=== PATIENT | female | born 1985 | race Caucasian/White ===

== ENCOUNTER 2017-06-09 22:35 | Emergency (ER) | payer BC, MEDICAID ==
[~2017-06-09] VITALS: Ht 162.6 cm; Wt 111.6 kg
[2017-06-09 22:35] VITALS: BP_SYST 162
[~2017-06-09 22:35] MED LIST: LEVO75TA7 PO; ZYZAL PO
[2017-06-09] MEDS ORDERED: methylPREDNISolone SOD SUCC/PF 62.5 MG/ML VIAL IVP ONE (23:00)
[2017-06-09] MEDS ORDERED: EPINEPHrine 1 MG/ML AMP SUBCUT ONE (23:00)
[2017-06-09] MEDS ORDERED: DIPHENHYDRAMINE INJ 50 MG/ML VIAL IVP ONE (23:00)
[2017-06-09] MEDS ORDERED: FAMOTIDINE PF 20 MG/2 ML VIAL IVP ONE (23:00)
[2017-06-10 00:32] VITALS: BP_SYST 161
== END 2017-06-10 00:32 | disposition home or self-care (01) ==
LOC: SED 22:35
DX: T78.1XXA Other adverse food reactions, not elsewhere classified, initial encounter (principal); R07.0 Pain in throat; R06.02 Shortness of breath; R03.0 Elevated blood-pressure reading, without diagnosis of hypertension; J45.909 Unspecified asthma, uncomplicated; Z88.2 Allergy status to sulfonamides; Z91.010 Allergy to peanuts; X58.XXXA Exposure to other specified factors, initial encounter
CPT/HCPCS: 70360; 81025; 96372; 96374; 96375; 99284; J0171; J1200; J2930; J3490

== ENCOUNTER 2017-06-16 23:10 | Emergency (ER) | payer MEDICAID ==
[~2017-06-16] VITALS: Ht 162.6 cm; Wt 109.8 kg
[2017-06-16 23:15] VITALS: BP_SYST 154
--- NOTE | 2017-06-16 23:15 | NUR ---
Patient to ER bed 7 to gown for evaluation. Side rails up. Report given to Marina RODRIGUEZ.
--- NOTE | 2017-06-16 23:18 | NUR ---
Patient AAO x4, sitting in bed, c/o weakness, "sweatiness", shaking, nausea, vomiting, dizziness, shortness of breath, and body aches 5/10 x "a few days",patient not actively vomiting, denies nausea at this time, lung sounds clear, patient afebrile. at bedside. Patient laughing at talking to and playing on her cell phone. No acute distress noted. Will continue to monitor.
--- NOTE | 2017-06-17 01:32 | NUR ---
ER Dr. Guillermo at bedside examining patient.
[2017-06-17 01:49] LABS: BILIRUBIN,URINE NEGATIVE (NEGATIVE); BLOOD, URINE NEGATIVE (NEGATIVE); CLARITY/URINE CLEAR (CLEAR); COLOR,URINE YELLOW (YELLOW); GLUCOSE,URINE NEGATIVE (NEGATIVE); KETONES,URINE NEGATIVE (NEGATIVE); LEUKOCYTE ESTERASE ,URINE NEGATIVE (NEGATIVE); NITRITE, URINE NEGATIVE (NEGATIVE); PROTEIN URINE 2+ (NEGATIVE); UROBILINOGEN,URINE 0.2 (0.2-1.0)
[2017-06-17 01:58] LABS: BASOPHILS # (AUTO) 0.1 K/uL (0.0-0.2); BASOPHILS % (AUTO) 0.5 % (0.0-2.0); EOSINOPHILS # (AUTO) 0.4 K/uL (0.0-0.4); EOSINOPHILS % (AUTO) 3.5 % (0.0-4.0); HEMATOCRIT 37.6 % (36-48); HEMOGLOBIN 12.5 g/dL (12.0-16.0); LYMPHOCYTES # (AUTO) 3.2 K/uL (1.0-5.5); LYMPHOCYTES % (AUTO) 27.7 % (20.5-51.5); MEAN CORPUSCULAR HEMOGLOBIN 25 pg (27-31); MEAN CORPUSCULAR HGB CONC 33 % (32-36); MEAN CORPUSCULAR VOLUME 76 fL (79.0-98.0); MONOCYTES # (AUTO) 0.7 K/uL (0.0-1.0); MONOCYTES % (AUTO) 6.2 % (1.7-9.3); NEUTROPHILS # (AUTO) 7.1 K/uL (1.8-7.7); NEUTROPHILS % (AUTO) 62.1 % (40.0-70.0); PLATELET COUNT (AUTO) 271 K/uL (130-430); RED BLOOD CELL COUNT(AUTO) 4.93 MIL/uL (4.2-6.2); RED CELL DISTRIBUTION WIDTH 14.6 % (9.0-15.0); WHITE BLOOD COUNT (AUTO) 11.5 K/uL (4.8-10.8)
[2017-06-17 02:03] LABS: CALCIUM 8.7 mg/dL (8.4-11.0); CREATININE 0.73 mg/dL (0.55-1.30); POTASSIUM 3.8 mmol/L (3.5-5.1)
[2017-06-17 02:05] LABS: RBC,URINE NONE SEEN /HPF (0-3); WBC,URINE NONE SEEN /HPF (0-3)
[2017-06-17 02:06] LABS: BACTERIA,URINE RARE /HPF (None Seen); MUCUS,URINE 1+ /LPF (None Seen)
[2017-06-17 02:18] LABS: BARBITURATE, URINE NEGATIVE (NEG <=200); BENZODIAZEPINE, URINE NEGATIVE (NEG <=150); CANNABINOID, URINE NEGATIVE (NEG <=50); COCAINE, URINE NEGATIVE (NEG <=150); METHAMPHETAMINES SCREEN,URINE NEGATIVE (NEG <=500); OPIATE, URINE NEGATIVE (NEG <=100); PHENCYCLIDINE SCREEN,URINE NEGATIVE (NEG <=25); UR TRICYCLIC ANTIDEPRESSANTS NEGATIVE (NEG <=300); URINE AMPHETAMINE NEGATIVE (NEG <=500); URINE METHADONE NEGATIVE (NEG <=200); URINE OXYCODONE SCREEN NEGATIVE (NEG <=100); URINE PROPOXYPHENE SCREEN NEGATIVE (NEG <=300)
[2017-06-17 02:19] LABS: ALBUMIN 3.5 g/dL (3.4-4.8); THYROID STIMULATING HORMONE 18.92 uIu/mL (0.34-4.82); TOTAL BILIRUBIN 0.3 mg/dL (0.0-1.0); TOTAL PROTEIN, SERUM 7.3 g/dL (6.4-8.3)
--- NOTE | 2017-06-17 02:30 | NUR ---
Patient resting quietly. No acute distress noted. Vital signs within normal range.
[2017-06-17 03:02] VITALS: BP_SYST 130
--- NOTE | 2017-06-17 03:02 | NUR ---
Patient given written and verbal discharge instructions and verbalizes understanding. ER MD discussed with patient the results and treatment provided. Patient in stable condition. ID arm band removed. No Rx given. Patient educated on pain management and to follow up with PMD. Pain Scale 0/10. Opportunity for questions provided and answered.
== END 2017-06-17 03:02 | disposition home or self-care (01) ==
LOC: SED 23:10
DX: R94.6 Abnormal results of thyroid function studies (principal); J45.909 Unspecified asthma, uncomplicated; Z88.2 Allergy status to sulfonamides; Z91.010 Allergy to peanuts; Z88.5 Allergy status to narcotic agent
CPT/HCPCS: 36415; 80053; 80307; 81000-TC; 81025; 84443-TC; 85025; 99284

== ENCOUNTER 2017-07-09 14:53 | Emergency (ER) | payer MEDICAID ==
[~2017-07-09] VITALS: Ht 162.6 cm; Wt 109.8 kg
[2017-07-09 15:04] VITALS: BP_SYST 159
[2017-07-09] MEDS ORDERED: ONDANSETRON HCL 4 MG/2 ML VIAL IVP ONE (15:45)
[2017-07-09] MEDS ORDERED: NACL 0.9% 1,000 ML IV ONE (15:45)
[2017-07-09] MEDS ORDERED: LABETALOL 100 MG/ 20ML VIAL IVP ONE (15:45)
[2017-07-09 15:54] LABS: BILIRUBIN,URINE 1+ (NEGATIVE); BLOOD, URINE NEGATIVE (NEGATIVE); CLARITY/URINE SL HAZY (CLEAR); COLOR,URINE YELLOW (YELLOW); GLUCOSE,URINE NEGATIVE (NEGATIVE); KETONES,URINE TRACE (NEGATIVE); LEUKOCYTE ESTERASE ,URINE TRACE (NEGATIVE); NITRITE, URINE NEGATIVE (NEGATIVE); PROTEIN URINE 3+ (NEGATIVE)
[2017-07-09 16:01] LABS: BASOPHILS # (AUTO) 0.1 K/uL (0.0-0.2); BASOPHILS % (AUTO) 0.5 % (0.0-2.0); EOSINOPHILS # (AUTO) 0.6 K/uL (0.0-0.4); HEMOGLOBIN 12.5 g/dL (12.0-16.0); LYMPHOCYTES % (AUTO) 16.8 % (20.5-51.5); NEUTROPHILS % (AUTO) 71.1 % (40.0-70.0)
[2017-07-09 16:03] LABS: EOSINOPHILS % (AUTO) 5.1 % (0.0-4.0); HEMATOCRIT 37.9 % (36-48); MEAN CORPUSCULAR HEMOGLOBIN 26 pg (27-31); MEAN CORPUSCULAR HGB CONC 33 % (32-36); MEAN CORPUSCULAR VOLUME 78 fL (79.0-98.0); MONOCYTES # (AUTO) 0.8 K/uL (0.0-1.0); MONOCYTES % (AUTO) 6.5 % (1.7-9.3); NEUTROPHILS # (AUTO) 8.5 K/uL (1.8-7.7); PLATELET COUNT (AUTO) 258 K/uL (130-430); RED BLOOD CELL COUNT(AUTO) 4.86 MIL/uL (4.2-6.2); RED CELL DISTRIBUTION WIDTH 15.2 % (9.0-15.0)
[2017-07-09 16:16] LABS: BACTERIA,URINE MODERATE /HPF (None Seen); RBC,URINE 0-3 /HPF (0-3)
[2017-07-09 16:17] LABS: MUCUS,URINE 2+ /LPF (None Seen)
[2017-07-09] MEDS ORDERED: hydrALAZINE HCL 20 MG/ML VIAL IVP ONE (16:45)
[2017-07-09] MEDS ORDERED: NITROFURANTOIN MONOHYD/M-CRYST 100 MG CAPSULE PO ONE (17:00)
[2017-07-09 17:39] LABS: CALCIUM 8.6 mg/dL (8.4-11.0); CREATININE 0.57 mg/dL (0.55-1.30); POTASSIUM 3.6 mmol/L (3.5-5.1)
[2017-07-09 18:02] LABS: ALBUMIN 3.3 g/dL (3.4-4.8); TOTAL BILIRUBIN 0.4 mg/dL (0.0-1.0); TOTAL PROTEIN, SERUM 6.9 g/dL (6.4-8.3)
[2017-07-09 19:10] VITALS: BP_SYST 145
== END 2017-07-09 19:05 | disposition home or self-care (01) ==
LOC: SED 14:53
DX: O16.1 Unspecified maternal hypertension, first trimester (principal); O23.41 Unspecified infection of urinary tract in pregnancy, first trimester; O99.281 Endocrine, nutritional and metabolic diseases complicating pregnancy, first trimester; E03.9 Hypothyroidism, unspecified; O21.9 Vomiting of pregnancy, unspecified; J45.909 Unspecified asthma, uncomplicated; Z3A.01 Less than 8 weeks gestation of pregnancy; Z88.2 Allergy status to sulfonamides; Z88.5 Allergy status to narcotic agent; Z91.010 Allergy to peanuts
CPT/HCPCS: 36415; 76801; 76817; 80053; 81000; 81025; 84439; 84443; 84702; 85025; 86886; 86900; 86901; 87086; 87210; 87491; 87591; 93005; 96361; 96374; 96375; 99285; J0360; J2405; J3490; J7030

== ENCOUNTER 2017-07-16 11:02 | Emergency (ER) | payer MEDICAID ==
[~2017-07-16] VITALS: Ht 162.6 cm; Wt 108.9 kg
[2017-07-16 11:02] VITALS: BP_SYST 144
--- NOTE | 2017-07-16 11:04 | NUR ---
BROUGHT BACK TO BED #7 AND TRIAGED. REPORT GIVEN TO [place]
--- NOTE | 2017-07-16 11:25 | NUR ---
Pt complains of cramping with spotting and hypertension for the past couple of days, pt was here 7 days ago with the same problem, HTN medication was given last time with [facility]. No other injuries/complaints per pt or noted.
[2017-07-16] MEDS ORDERED: METO-290 PO (11:29)
[2017-07-16] MEDS ORDERED: PRO20 PO (11:29)
[2017-07-16] MEDS ORDERED: LABE300T PO (11:29)
[2017-07-16] MEDS ORDERED: CEPH-568 PO (11:29)
[2017-07-16] MEDS ORDERED: NITR-85 PO (11:29)
[2017-07-16] MEDS ORDERED: LEVO125T8 PO (11:29)
[2017-07-16] MEDS ORDERED: HYDR-4037 PO (11:29)
--- NOTE | 2017-07-16 11:32 | NUR ---
ER at bedside examining patient.
[2017-07-16] MEDS ORDERED: NACL 0.9% 1,000 ML IV ONE (11:45)
[2017-07-16 11:57] LABS: BILIRUBIN,URINE NEGATIVE (NEGATIVE); BLOOD, URINE NEGATIVE (NEGATIVE); CLARITY/URINE CLEAR (CLEAR); COLOR,URINE YELLOW (YELLOW); GLUCOSE,URINE NEGATIVE (NEGATIVE); KETONES,URINE NEGATIVE (NEGATIVE); LEUKOCYTE ESTERASE ,URINE 1+ (NEGATIVE); NITRITE, URINE NEGATIVE (NEGATIVE); PROTEIN URINE 2+ (NEGATIVE)
[2017-07-16 12:05] LABS: RBC,URINE 0-3 /HPF (0-3)
[2017-07-16 12:06] LABS: BACTERIA,URINE FEW /HPF (None Seen); WBC,URINE 0-3 /HPF (0-3)
[2017-07-16 12:07] LABS: MUCUS,URINE None Seen /LPF (None Seen)
[2017-07-16 12:20] LABS: BASOPHILS # (AUTO) 0.1 K/uL (0.0-0.2); BASOPHILS % (AUTO) 0.5 % (0.0-2.0); EOSINOPHILS # (AUTO) 0.3 K/uL (0.0-0.4); EOSINOPHILS % (AUTO) 2.7 % (0.0-4.0); HEMATOCRIT 37.4 % (36-48); HEMOGLOBIN 12.3 g/dL (12.0-16.0); LYMPHOCYTES # (AUTO) 2.1 K/uL (1.0-5.5); LYMPHOCYTES % (AUTO) 18.2 % (20.5-51.5); MEAN CORPUSCULAR HEMOGLOBIN 26 pg (27-31); MEAN CORPUSCULAR HGB CONC 33 % (32-36); MEAN CORPUSCULAR VOLUME 78 fL (79.0-98.0); MONOCYTES # (AUTO) 0.6 K/uL (0.0-1.0); MONOCYTES % (AUTO) 5.5 % (1.7-9.3); NEUTROPHILS # (AUTO) 8.3 K/uL (1.8-7.7); NEUTROPHILS % (AUTO) 73.1 % (40.0-70.0); PLATELET COUNT (AUTO) 317 K/uL (130-430); RED BLOOD CELL COUNT(AUTO) 4.83 MIL/uL (4.2-6.2); RED CELL DISTRIBUTION WIDTH 15.6 % (9.0-15.0); WHITE BLOOD COUNT (AUTO) 11.4 K/uL (4.8-10.8)
[2017-07-16 12:30] LABS: CALCIUM 9.1 mg/dL (8.4-11.0); CREATININE 0.58 mg/dL (0.55-1.30); POTASSIUM 3.9 mmol/L (3.5-5.1)
[2017-07-16 12:33] LABS: INR 0.9 (0.8-1.2); PROTHROMBIN TIME 10.2 SECS (9.5-12.5)
[2017-07-16 12:49] LABS: ALBUMIN 3.7 g/dL (3.4-4.8); TOTAL BILIRUBIN 0.4 mg/dL (0.0-1.0)
[2017-07-16 12:53] VITALS: BP_SYST 145
--- NOTE | 2017-07-16 12:58 | NUR ---
Patient given written and verbal discharge instructions and verbalizes understanding. ER MD discussed with patient the results and treatment provided. Patient in stable condition. ID arm band removed. IV SC with cath intact. Patient educated on pain management and to follow up with PMD. Pain Scale 0/10. Opportunity for questions provided and answered.
== END 2017-07-16 12:53 | disposition home or self-care (01) ==
LOC: SED 11:02
DX: O26.891 Other specified pregnancy related conditions, first trimester (principal); I10 Essential (primary) hypertension; E03.9 Hypothyroidism, unspecified; J45.909 Unspecified asthma, uncomplicated; Z3A.00 Weeks of gestation of pregnancy not specified; Z88.2 Allergy status to sulfonamides; Z88.6 Allergy status to analgesic agent; Z91.010 Allergy to peanuts; Z79.899 Other long term (current) drug therapy
CPT/HCPCS: 36415; 80053; 81000; 84702; 85025; 85610; 85730; 96360; 99284; J7030

== ENCOUNTER 2017-07-20 09:14 | Emergency (ER) | payer MEDICAID ==
[~2017-07-20] VITALS: Ht 162.6 cm; Wt 108.9 kg
[~2017-07-20 09:14] MED LIST changes: +CEPH-568 PO; +HYDR-4037 PO; +LABE300T PO; +LEVO125T8 PO; +METO-290 PO; +NITR-85 PO; +PRO20 PO
[2017-07-20 09:18] VITALS: BP_SYST 145
--- NOTE | 2017-07-20 09:22 | NUR ---
Pt placed to ER bed 05, report given to JENNIFER Morris.
--- NOTE | 2017-07-20 09:30 | NUR ---
ER at bedside examining patient.
[2017-07-20] MEDS ORDERED: NACL 0.9% 1,000 ML IV ONE (09:33)
[2017-07-20] MEDS ORDERED: MORPHINE 2 MG/ML INJ. SYRINGE IVP ONE (09:45)
[2017-07-20] MEDS ORDERED: PROCHLORPERAZINE EDISYLATE 10 MG/2 ML VIAL IVP ONE (09:45)
--- NOTE | 2017-07-20 09:50 | NUR ---
Pt complains of vomiting and anxiety for the past week, pt denies fever, diarrhea. Pt is unable to take blood pressure medication because she cannot stop vomiting. Pt is 6 weeks . No other injuries/complaints per pt or noted.
--- NOTE | 2017-07-20 10:06 | NUR ---
Medications were given, no adverse reactions noted. will continue to monitor
[2017-07-20 10:13] LABS: BILIRUBIN,URINE NEGATIVE (NEGATIVE); BLOOD, URINE NEGATIVE (NEGATIVE); CLARITY/URINE CLEAR (CLEAR); COLOR,URINE YELLOW (YELLOW); GLUCOSE,URINE NEGATIVE (NEGATIVE); KETONES,URINE NEGATIVE (NEGATIVE); LEUKOCYTE ESTERASE ,URINE NEGATIVE (NEGATIVE); NITRITE, URINE NEGATIVE (NEGATIVE); PROTEIN URINE 2+ (NEGATIVE)
[2017-07-20 10:15] LABS: CALCIUM 9.5 mg/dL (8.4-11.0); CREATININE 0.56 mg/dL (0.55-1.30); POTASSIUM 4.2 mmol/L (3.5-5.1)
--- NOTE | 2017-07-20 10:30 | NUR ---
Pt is resting comfortably in bed with no noted distress or discomfort.
[2017-07-20 10:38] LABS: BACTERIA,URINE FEW /HPF (None Seen); HYALINE CASTS, URINE 0-10 /LPF (None Seen); RBC,URINE 0-3 /HPF (0-3); WBC,URINE 0-3 /HPF (0-3)
[2017-07-20 11:21] VITALS: BP_SYST 132
--- NOTE | 2017-07-20 11:21 | NUR ---
Patient given written and verbal discharge instructions and verbalizes understanding. ER MD discussed with patient the results and treatment provided. Patient in stable condition. ID arm band removed. IV catheter removed intact and dressing applied, no active bleeding. Rx of Pyridoxine given. Patient educated on pain management and to follow up with PMD. Pain Scale 0. Opportunity for questions provided and answered.
== END 2017-07-20 11:21 | disposition home or self-care (01) ==
LOC: SED 09:14
DX: O21.0 Mild hyperemesis gravidarum (principal); O99.341 Other mental disorders complicating pregnancy, first trimester; F41.9 Anxiety disorder, unspecified; O16.1 Unspecified maternal hypertension, first trimester; O99.511 Diseases of the respiratory system complicating pregnancy, first trimester; O99.281 Endocrine, nutritional and metabolic diseases complicating pregnancy, first trimester; E03.9 Hypothyroidism, unspecified; J45.909 Unspecified asthma, uncomplicated; Z3A.09 9 weeks gestation of pregnancy
CPT/HCPCS: 36415; 80048; 81000; 81025; 96361; 96374; 96375; 99284; J0780; J2270; J7030